=== PATIENT | female | born 1995 | race African-American/Black ===

== ENCOUNTER 2025-01-23 09:17 | Outpatient (OUT) | payer OTHER, SELFPAY ==
[2025-01-23 09:52] VITALS: BP 133/94; PULSE 71; TEMP 36.4; O2SAT 100; BMI 32.6
[2025-01-23 09:58] LABS: Basophils Absolute Auto 0.1 10^3/uL (0.0-0.1); Basophils Percent Auto 1.1 % (0.2-2.0); Eosinophils Absolute Auto 0.3 10^3/uL (0.0-0.7); Eosinophils Percent Auto 4.6 % (0.9-7.0); Hematocrit 40.4 % (36.0-48.0); Hemoglobin 13.9 g/dL (12.0-16.0); Immature Granulocytes Abs Auto 0.01 10^3/uL (0.00-0.03); Immature Granulocytes Pct Auto 0.2 % (0.0-0.5); Lymphocytes Absolute Auto 2.2 10^3/uL (1.2-3.8); Lymphocytes Percent Auto 41.1 % (20.5-60.0); Mean Corpuscular HGB Conc 34.4 g/dL (29.9-35.2); Mean Corpuscular Hemoglobin 32.6 pg (26.7-34.0); Mean Corpuscular Volume 94.6 fL (81.0-99.0); Mean Platelet Volume 9.7 fL (9.5-13.5); Monocytes Absolute Auto 0.5 10^3/uL (0.3-0.8); Monocytes Percent Auto 9.7 % (1.7-12.0); Neutrophils Absolute Auto 2.4 10^3/uL (1.4-6.5); Neutrophils Percent Auto 43.3 % (43.0-75.0); Platelet Count 274 10^3/uL (150-450); Red Blood Count 4.27 10^6/uL (4.20-5.40); Red Cell Distribution Width 12.8 % (11.0-15.0); White Blood Count 5.5 10^3/uL (4.0-11.0)
[2025-01-23 10:15] LABS: Partial Thromboplastin Time 30.3 sec (22.3-36.2); Prothrombin Time 10.6 sec (9.0-11.6)
[2025-01-23 10:23] LABS: Anion Gap 10.6; BUN Creatinine Ratio 11.8; Carbon Dioxide 27.2 mmol/L (21.0-32.0); Chloride 106 mmol/L (98-107); Estimated GFR (African America >60 (>=60 mL/min/1.73m^2); Estimated GFR (Non-African Ame >60 (>=60 mL/min/1.73m^2); Glucose 87 mg/dL (74-106); Potassium 3.8 mmol/L (3.5-5.1); Sodium 140 mmol/L (136-145)
== END 2025-01-23 09:18 | disposition home or self-care (01) ==
LOC: PST 09:21
PROVIDERS: Visit Provider Urology
DX: Z01.812 Encounter for preprocedural laboratory examination (principal); N20.1 Calculus of ureter
CPT/HCPCS: 80048; 85025; 85610; 85730

== ENCOUNTER 2025-01-24 09:23 | Day surgery (SDC) | payer OTHER, SELFPAY ==
[2025-01-24] VITALS (12 sets, daily range): BP systolic 117–135; BP diastolic 82–98; PULSE 53–85; TEMP 36.1–36.4; O2SAT 97–100; BMI 32.7
[2025-01-24 09:51] LABS: HCG Qualitative NEGATIVE (NEGATIVE); Internal Control Within Normal Limits
[2025-01-24] MEDS: LACTATED RINGER'S SOLUTION 1,000 ML 50 ML IV (09:52)
[2025-01-24] MEDS: CIPROFLOXACIN 400 MG/200 ML D5W PREMIX 200 MG IV (10:17)
--- NOTE | 2025-01-24 10:58 | PM.URSON ---
Urology Surgery Operative Note Operative Note Procedure Date: 01/24/25 Time Out Performed: yes Pre-op Diagnosis: Left flank pain and left ureteral calculus Post-op Diagnosis: other (Left flank pain and passed ureteral calculus and left distal ureteral stenosis) Procedures performed: 1. Cystoscopy. 2. Left rigid ureteral dilation of stenotic ureter. 3. Left ureteroscopy. 4. Placement of 6 Hebrew variable length left ureteral stent Anesthesia: General-LMA Primary Surgeon: Jordi Lima Complications: None Estimated blood loss (mL): 0 Findings: 1. Normal bladder. 2. Left distal ureteral stenosis. 3. Inflammatory debris throughout the left ureter. 4. Passed left ureteral calculus Specimens: None Drains: 6 Hebrew variable length left ureteral stent Indications for Procedures: This lady had a 8 mm obstructing distal left ureteral calculus. She has been using a strainer and never passed her stone. She has had constant left flank pain. Follow-up KUB and IVP were negative. Due to her persistent pain she was desirous for endoscopic evaluation and possible stone manipulation with left stent placement. She has signed an informed consent after risks were explained. Detailed description of Procedure: The patient was brought to the operating room and placed on the operating room table in the supine position. SCDs were placed on the lower extremities and turned on and functioning during the entire case. Timeout was done by all parties in the room. We all agreed upon the patient's identification and the planned procedures for this patient. Genn. anesthesia was then administered. The patient was then repositioned into the modified dorsal lithotomy position. All pressure points were satisfactorily padded. Genitalia were sterilely prepped and draped in usual fashion. I started by passing a 22 Hebrew Olympus cystoscope per urethra and into the bladder. Panendoscopy in the bladder revealed no evidence of any tumors, stones or lesions. I then passed a Glidewire through the scope and up the left ureter. As soon as I did this I had inflammatory debris coming out of the ureter. The ureter appeared stenotic. I then used an 8 and 10 Hebrew rigid dilator to dilate the stenotic distal left ureter. The scope was removed and I then passed a semirigid ureteroscope adjacent to the wire into the bladder and into the left ureter. I carefully scoped up the ureter all the way to the UPJ and back. There was no evidence of stone. There was quite a bit of inflammatory debris all along the ureter. The ureteroscope was removed. The cystoscope was backloaded over the wire and passed into the bladder. I then slid a 6 Hebrew variable length ureteral stent over the wire up into the kidney. The wire was removed and there were good curls in the kidney and in the bladder. The bladder was drained of its contents and the scope was then removed. She was then transferred to a [facility] [place] bed and wheeled to PACU in stable condition.
[2025-01-24] MEDS: ONDANSETRON PF 4 MG/2 ML VIAL IV (11:44)
--- NOTE | 2025-01-24 11:46 | PC.NURSE ---
1144- Patient c/o nausea. Medicated with Zofran as ordered.
[2025-01-24] MEDS: PHENAZOPYRIDINE 100 MG TABLET 200 MG PO (12:28)
== END 2025-01-24 13:00 | disposition home or self-care (01) ==
PROVIDERS: Visit Provider Urology
PROC: (CPT 910; principal; 2025-01-24 10:10)
DX: Q62.10 Congenital occlusion of ureter, unspecified (principal); R10.9 Unspecified abdominal pain; Z87.442 Personal history of urinary calculi
CPT/HCPCS: 52332; 52344; 36415; 76000; 84703; J0744; J1100; J2405; J2704; J3010